=== PATIENT | female | born 1965 | race Caucasian/White ===

== ENCOUNTER 2017-09-23 17:48 | Emergency (ER) | payer BC ==
--- NOTE | 2017-09-23 18:43 | UC ---
Respiratory Complaint HPI - HPI Summary HPI Summary: C/O cough going on 1 week, not improving. Having coughing fits with SOB. - History of Current Complaint Chief Complaint: UCGeneralIllness Stated Complaint: COUGH Time Seen by Provider: 09/23/17 18:34 Hx Obtained From: Patient Hx Last Menstrual Period: 2 months ?: No Onset/Duration: Sudden Onset, Lasting Weeks - 1, Still Present Timing: Constant Severity Initially: Mild Severity Currently: Moderate Character: Cough: Productive - at times, other times dry coughing fits. Aggravating Factors: Recumbent Position Alleviating Factors: Nothing Associated Signs And Symptoms: Positive: URI, Nasal Congestion. Negative: Hoarseness, Sinus Discomfort - Risk Factors Pulmonary Embolism Risk Factors: Smoking - Allergies/Home Medications Allergies/Adverse Reactions: Allergies Allergy/AdvReac Type Severity Reaction Status Date / Time No Known Allergies Allergy Verified 09/23/17 18:10 PMH/Surg Hx/FS Hx/Imm Hx Previously Healthy: Yes - Surgical History Surgical History: Yes Surgery Procedure, Year, and Place: Tubal ligation, Tubal ligation reversal, tonsillectomy. - Family History Known Family History: Positive: Cardiac Disease, Hypertension, Diabetes - Social History Occupation: Employed Full-time Lives: With Family Alcohol Use: Rare Substance Use Type: None Smoking Status (MU): Heavy Every Day Tobacco Smoker Type: Cigarettes Amount Used/How Often: 1 pack daily - Immunization History Most Recent Influenza Vaccination: 07/2017 Most Recent Tetanus Shot: unknown Review of Systems Respiratory: Shortness Of Breath, Cough Is Patient Immunocompromised?: No All Other Systems Reviewed And Are Negative: Yes Physical Exam Triage Information Reviewed: Yes Appearance: No Pain Distress, Well-Nourished, Ill-Appearing Vital Signs: Initial Vital Signs Temp 98.3 F 09/23/17 18:04 Pulse 94 09/23/17 18:04 Resp 17 09/23/17 18:04 BP 104/72 09/23/17 18:04 Pulse Ox 98 09/23/17 18:04 Vital Signs Reviewed: Yes Eyes: Positive: Conjunctiva Clear ENT: Positive: Pharynx normal, TMs normal Neck exam: Normal Respiratory: Positive: Wheezing - expiratory wheezes with coughing Cardiovascular Exam: Normal Musculoskeletal Exam: Normal Neurological Exam: Normal Psychological Exam: Normal Skin Exam: Normal UC Diagnostic Evaluation - Laboratory O2 Sat by Pulse Oximetry: 98 Respiratory Course/Dx - Differential Dx/Diagnosis Differential Diagnosis/HQI/PQRI: Asthma, Lower Resp Infection, Sinusitis Provider Diagnoses: Acute URI. Acute bronchospasm Discharge - Discharge Plan Condition: Stable Disposition: HOME Prescriptions: predniSONE TAB* [Deltasone TAB*] 20 mg PO DAILY #18 tab Patient Education Materials: Upper Respiratory Infection (ED), Bronchospasm (ED ), Prednisone (By mouth) Referrals: No Primary Care Phys,NOPCP [Primary Care Provider] - Additional Instructions: Smoking Cessation Tricks. 1. Cut down by 1 cigarette per day every 2-3 days. Write the number of smokes for that day on the calendar. 2. Identify triggers to smoking: after meals, on the phone, in the car, with coffee, on breaks at work, etc. 3. Formulate a plan with a behavior to replace the smoking. Fireballs in the car , doodle pad on the phone, flavored creamer for the coffee, go for a walk after a meal or on break at work. 4. For stress smokes do deep breathing relaxation. Breath deep in through the nose hold the breath in for a few seconds then breath out slowly through the mouth.
[2017-09-23] MEDS ORDERED: predniSONE TAB* 20 MG PO ONE ×2 (18:45→19:02)
[2017-09-23] MEDS ORDERED: Albuterol HFA INHALER* 8 gm MDI INH ONE (18:45)
== END 2017-09-23 19:18 | disposition home or self-care (01) ==
LOC: UCCORT 17:48
DX: J06.9 Acute upper respiratory infection, unspecified (principal); J98.01 Acute bronchospasm; F17.210 Nicotine dependence, cigarettes, uncomplicated
CPT/HCPCS: 99212; A9270-GY; G0463; J7512

== ENCOUNTER 2019-01-16 13:24 | Emergency (ER) | payer BC ==
--- NOTE | 2019-01-16 13:41 | UC ---
FLU HPI - HPI Summary HPI Summary: 5 days of stallworth, muscle aches. sometimes cough. diarrhea and an episode of vomiting. - History of Current Complaint Stated Complaint: VOMITING,BODY ACHES,ST,DIARRHEA Time Seen by Provider: 01/16/19 13:39 Hx Obtained From: Patient Hx Last Menstrual Period: 2 months Associated Signs & Symptoms: Positive: Myalgia, Headache - Allergy/Home Medications Allergies/Adverse Reactions: Allergies Allergy/AdvReac Type Severity Reaction Status Date / Time No Known Allergies Allergy Verified 01/16/19 13:41 Home Medications: Home Medications Acetaminophen [Tylenol Extra Strength] 1,000 mg PO PRN 01/16/19 [History] PMH/Surg Hx/FS Hx/Imm Hx Previously Healthy: Yes - Surgical History Surgical History: Yes Surgery Procedure, Year, and Place: Tubal ligation, Tubal ligation reversal, tonsillectomy. - Family History Known Family History: Positive: Cardiac Disease, Hypertension, Diabetes - Social History Alcohol Use: Occasionally Substance Use Type: None Smoking Status (MU): Heavy Every Day Tobacco Smoker Type: Cigarettes Amount Used/How Often: 1 pack daily - Immunization History Most Recent Influenza Vaccination: 07/2017 Most Recent Tetanus Shot: unknown Review of Systems All Other Systems Reviewed And Are Negative: Yes Constitutional: Positive: Fever, Chills, Fatigue Skin: Negative: Rash Eyes: Positive: Negative ENT: Positive: Sinus Congestion, Sinus Pain/Tenderness Respiratory: Positive: Cough Gastrointestinal: Positive: Vomiting, Diarrhea. Negative: Abdominal Pain Neurological: Positive: Headache Physical Exam Triage Information Reviewed: Yes Appearance: Well-Appearing Vital Signs Reviewed: Yes Eyes: Positive: Conjunctiva Clear ENT: Positive: Pharynx normal, TMs normal, Uvula midline Neck: Positive: Supple, Nontender, No Lymphadenopathy. Negative: Nuchal Rigidity Respiratory Exam: Normal Cardiovascular Exam: Normal Abdomen Description: Positive: Nontender, Soft. Negative: CVA Tenderness (R), CVA Tenderness (L) Neurological: Positive: Alert Skin: Negative: Rashes Flu Course/Dx - Course Course Of Treatment: Viral syndrome x 4 days including an episode of vomiting, some diarrhea, cough, stallworth, muscle aches. rapid flu is neg. vitals are good, physical exam was unremarkable. we discussed comfort measures for tx. - Differential Dx/Diagnosis Differential Diagnosis/HQI/PQRI: Broncholiolitis, Influenza, RSV, Upper Respiratory Infection Provider Diagnosis: Flu-like symptoms Discharge - Sign-Out/Discharge Documenting (check all that apply): Patient Departure All imaging exams completed and their final reports reviewed: No Studies - Discharge Plan Condition: Good Disposition: HOME Patient Education Materials: Gastroenteritis (ED) Forms: *Work Release Referrals: No Primary Care Phys,NOPCP [Primary Care Provider] - Additional Instructions: WE discussed signs and symptoms of when to go to the Emergency Room - Billing Disposition and Condition Condition: GOOD Disposition: Home
[2019-01-16 13:51] VITALS: BP 109/71
[2019-01-16 14:13] LABS: Influenza A Molecular NEGATIVE (Negative); Influenza B Molecular NEGATIVE (Negative)
== END 2019-01-16 14:39 | disposition home or self-care (01) ==
LOC: UCCORT 13:24
DX: R51 Headache (principal); R05 Cough; R19.7 Diarrhea, unspecified; R11.10 Vomiting, unspecified; M79.10 Myalgia, unspecified site; F17.210 Nicotine dependence, cigarettes, uncomplicated
CPT/HCPCS: 99211; G0463

== ENCOUNTER 2019-06-01 19:00 | Emergency (ER) | payer BC, OTHER ==
[2019-06-01 19:29] VITALS: BP 116/75
[2019-06-01] MEDS ORDERED: Ondansetron ODT TAB* 4 MG PO ONE (20:11)
--- NOTE | 2019-06-01 20:16 | UC ---
Abdominal Pain Female HPI - HPI Summary HPI Summary: states had migraine sunday and Sunday, with vomiting, pain upper gastric area, concerned with possible hernia, last episode of vomiting . had an injury about 1 month ago and has had on andn off pain since. - History of Current Complaint Chief Complaint: UCAbdominalPain Stated Complaint: UPSET STOMACH,VOMITING (W/C?) Time Seen by Provider: 06/01/19 19:52 Hx Obtained From: Patient Hx Last Menstrual Period: 2 months ?: No Onset/Duration: Sudden Onset, Lasting Days Timing: Constant Severity Initially: Moderate Severity Currently: Severe Pain Intensity: 8 Location: Epigastric Radiates: No Allergies/Adverse Reactions: Allergies Allergy/AdvReac Type Severity Reaction Status Date / Time No Known Allergies Allergy Verified 06/01/19 19:29 PMH/Surg Hx/FS Hx/Imm Hx Previously Healthy: Yes - Surgical History Surgical History: Yes Surgery Procedure, Year, and Place: Tubal ligation, Tubal ligation reversal, tonsillectomy. - Family History Known Family History: Positive: Cardiac Disease, Hypertension, Diabetes - Social History Alcohol Use: Occasionally Substance Use Type: None Smoking Status (MU): Heavy Every Day Tobacco Smoker Type: Cigarettes Amount Used/How Often: 1 pack daily Length of Time of Smoking/Using Tobacco: AGE 14 Have You Smoked in the Last Year: Yes Household Exposure Type: Cigarettes - Immunization History Most Recent Influenza Vaccination: 07/2017 Most Recent Tetanus Shot: unknown Review of Systems All Other Systems Reviewed And Are Negative: Yes Gastrointestinal: Positive: Abdominal Pain, Nausea Is Patient Immunocompromised?: No Physical Exam Triage Information Reviewed: Yes Appearance: Well-Appearing, Well-Nourished, Pain Distress Vital Signs: Initial Vital Signs Temp 98.2 F 06/01/19 19:26 Pulse 98 06/01/19 19:26 Resp 16 06/01/19 19:26 BP 116/75 06/01/19 19:26 Pulse Ox 100 06/01/19 19:26 Vital Signs Reviewed: Yes Eye Exam: Normal ENT Exam: Normal Dental Exam: Normal Neck exam: Normal Respiratory Exam: Normal Cardiovascular Exam: Normal Abdomen Description: Positive: No Organomegaly, Soft, CVA Tenderness (R) - neg, CVA Tenderness (L) - neg, Other: - mild epigastric tenderness on palpation, sitting up causes mild pain as well Bowel Sounds: Positive: Present Musculoskeletal Exam: Normal Neurological Exam: Normal Psychological Exam: Normal Skin Exam: Normal Abd Pain Female Course/Dx - Course Course Of Treatment: hx obtained, exam performed ,meds reviewed, patient given zofran for vomiting related to her migrianes, discussed the need for further workup. she is not acute at this time, no constipation or fever or acute pain. did discuss the need for possible ER work up, patient states she will follow up with her pr[facility] care this week. Work not given. adivsed to report to ER if symtpoms worsen overnight. - Differential Dx/Diagnosis Provider Diagnosis: Epigastric pain, Vomiting Discharge - Sign-Out/Discharge Documenting (check all that apply): Patient Departure All imaging exams completed and their final reports reviewed: No Studies - Discharge Plan Condition: Stable Disposition: HOME Prescriptions: Ondansetron TAB* [Zofran 4 MG Tab*] 4 mg PO Q6H PRN #12 tab PRN Reason: Nausea Patient Education Materials: Abdominal Pain (ED) Referrals: No Primary Care Phys,NOPCP [Primary Care Provider] - Additional Instructions: 1. I am giving you some zofran to help with the nausea 2. I am giving you a work note to rest and get the proper work up. we recommend that you follow up with your [facility] care, if your symptoms become acute, report to ER for work up. - Billing Disposition and Condition Condition: STABLE Disposition: Home
== END 2019-06-01 20:21 | disposition home or self-care (01) ==
LOC: UCCORT 19:00
DX: R10.13 Epigastric pain (principal); R11.10 Vomiting, unspecified; F17.210 Nicotine dependence, cigarettes, uncomplicated
CPT/HCPCS: 99212; A9270-GY; G0463